=== PATIENT | female | born 1960 ===

== ENCOUNTER 2024-11-27 07:41 | Day surgery (SDC) | payer OTHER ==
[2024-11-27] MEDS ORDERED: ONDANSETRON HCL 2 MG/ML VIAL IV ONE (14:15)
[2024-11-27] MEDS ORDERED: DIPHENHYDRAMINE HCL 50 MG/ML VIAL 1ML IV ONE (14:15)
[2024-11-27] MEDS ORDERED: MIDAZOLAM HCL 2 MG/2 ML VIAL IV ONE (14:15)
[2024-11-27] MEDS ORDERED: fentaNYL CITRATE 50 MCG/ML AMPUL IV PUSH ONE (14:15)
== END 2024-11-27 15:30 | disposition home or self-care (01) ==
LOC: AMB-ENDOS 07:41
PROVIDERS: ATTEND Colon & Rectal Surgery
DX: K57.32 Diverticulitis of large intestine without perforation or abscess without bleeding (principal); Z93.3 Colostomy status; D12.5 Benign neoplasm of sigmoid colon; C20 Malignant neoplasm of rectum; R19.4 Change in bowel habit; Z12.11 Encounter for screening for malignant neoplasm of colon

== ENCOUNTER 2025-01-30 10:30 | Inpatient (IN) | payer OTHER ==
[~2025-01-30] VITALS: Ht 162.6 cm; Wt 80.7 kg
[2025-01-30 12:26] VITALS: BP 130/85
[2025-01-30] MEDS ORDERED: LIPITOR20 MG PO (14:15)
[2025-01-30] MEDS ORDERED: ACID REDUCER20 M1 PO (14:15)
[2025-01-30] MEDS ORDERED: CALCIUM500 M1 PO (14:16)
[2025-01-30] MEDS ORDERED: OMEGA-31000 MG PO (14:16)
[2025-02-07 08:21] LABS: RH POSITIVE
[2025-02-07] MEDS ORDERED: BUPIVACAINE HCL/Mpf 0.5% 10ML VIAL ONE (09:11)
[2025-02-07] MEDS ORDERED: LIDOCAINE HCL 1%/EPINEPHRINE 20ML VIAL IJ ONE ×2 (09:11→10:26)
[2025-02-07] MEDS ORDERED: METRONIDAZOLE/SODIUM CHLORIDE 500 MG/100 ML PIGGYBACK IV ONE (10:06)
[2025-02-07] MEDS ORDERED: CEFTRIAXONE SODIUM 2,000 MG VIAL ONE (10:06)
[2025-02-07] MEDS ORDERED: BUPIVACAINE HCL/MPF 0.5% 30ML VIAL ONE (10:26)
[2025-02-07] MEDS ORDERED: POVIDONE-IODINE 118 ML BOTT TOP ONE (10:30)
[2025-02-07] MEDS ORDERED: GLUCAGON 1 MG VIAL ONE (12:24)
[2025-02-07] MEDS ORDERED: ONDANSETRON HCL 2 MG/ML VIAL IV PRN (15:15)
[2025-02-07] MEDS ORDERED: MORPHINE SULFATE 4 MG/ML CARTRIDGE IV PRN (15:15)
[2025-02-07] MEDS ORDERED: RINGERS SOLUTION,LACTATED 1,000 ML IV SCH (15:15)
[2025-02-07] MEDS ORDERED: ENALAPRILAT DIHYDRATE 1.25 MG/ML VIAL IV PRN (15:30)
[2025-02-07] MEDS ORDERED: POLYETHYLENE GLYCOL 3350 17 GM BLIST.PACK PO SCH (17:00)
[2025-02-07] MEDS ORDERED: HYOSCYAMINE SULFATE 0.125 MG TAB.SUBL SL SCH (17:00)
[2025-02-07] MEDS ORDERED: GABAPENTIN 300 MG CAPSULE PO SCH (17:00)
[2025-02-07] MEDS ORDERED: MORPHINE SULFATE 4 MG/ML VIAL IV ONE (19:30)
[2025-02-07 19:37] LABS: BASO % 0.2 % (0.1-1.2); HEMATOCRIT 39.5 % (34.1-44.9); HEMOGLOBIN 12.9 g/dL (11.2-15.7); LYMPH # 1.09 (1.18-3.74); LYMPH % 6.7 % (19.3-53.1); MONO # 0.96 (0.24-0.82); MONO % 5.9 % (4.7-12.5); NEUT # 14.24 (1.56-6.13); PLATELET COUNT 242 K/uL (163-369); RED BLOOD COUNT 4.45 M/uL (3.93-5.22); RED CELL DISTRIBUTION WIDTH 13.2 % (11.6-14.4)
[2025-02-07 19:59] LABS: ALBUMIN 3.8 gm/dL (3.4-5.0); CALCIUM 8.5 mg/dL (8.5-10.1); CREATININE SERUM 0.6 mg/dL (0.55-1.02); GFR 100.64; MAGNESIUM 1.8 mg/dL (1.8-2.4); PHOSPHOROUS 3.1 mg/dL (2.5-4.9); POTASSIUM 4.28 mEq/L (3.5-5.1)
[2025-02-07] MEDS ORDERED: SIMETHICONE 125 MG CAPSULE PO ONE (20:45)
[2025-02-07] MEDS ORDERED: FAMOTIDINE/PF 20 MG/2 ML VIAL ONE (20:45)
[2025-02-07] MEDS ORDERED: SIMETHICONE 125 MG CAPSULE PO SCH (21:00)
[2025-02-07] MEDS ORDERED: FAMOTIDINE/PF 20 MG/2 ML VIAL IV PUSH SCH (21:00)
[2025-02-07 21:14] VITALS: BP 106/67; O2SAT 95
[2025-02-08 08:00] VITALS: BP 99/61; O2SAT 95
[2025-02-08 08:12] LABS: ALBUMIN 3.2 gm/dL (3.4-5.0); CREATININE SERUM 0.54 mg/dL (0.55-1.02); GFR 113.66; MAGNESIUM 1.9 mg/dL (1.8-2.4); PHOSPHOROUS 3.2 mg/dL (2.5-4.9); POTASSIUM 4.63 mEq/L (3.5-5.1)
[2025-02-08 08:31] LABS: BASO % 0.2 % (0.1-1.2); HEMATOCRIT 37.9 % (34.1-44.9); HEMOGLOBIN 12.5 g/dL (11.2-15.7); LYMPH # 1.65 (1.18-3.74); LYMPH % 13.4 % (19.3-53.1); MEAN CORPUSCULAR HEMOGLOBIN 29.3 pg (25.6-32.2); MONO # 1.21 (0.24-0.82); MONO % 9.9 % (4.7-12.5); NEUT # 9.36 (1.56-6.13); NEUT % 76.3 % (34.0-71.1); PLATELET COUNT 272 K/uL (163-369); RED BLOOD COUNT 4.26 M/uL (3.93-5.22); RED CELL DISTRIBUTION WIDTH 13.3 % (11.6-14.4)
[2025-02-08] MEDS ORDERED: LACTOBACILLUS ACIDOPHILUS 1 CAP CAP PO SCH (09:00)
[2025-02-08 15:38] VITALS: BP 115/60; O2SAT 94
[2025-02-08] MEDS ORDERED: ENOXAPARIN SODIUM 40 MG/0.4 ML SYRINGE SUBCUTANEO SCH (17:00)
[2025-02-08] MEDS ORDERED: MAGNESIUM SULFATE 1,000 MG in 0.9 % SODIUM CHLORIDE 50 ML IV ONE (19:30)
[2025-02-08] MEDS ORDERED: OxyCODONE HCL 5 MG TABLET (ROXICODONE) PO PRN (19:45)
[2025-02-08] MEDS ORDERED: POTASSIUM PHOS,M-BASIC-D-BASIC 15 MM in 0.9 % SODIUM CHLORIDE 250 ML IV ONE (19:45)
[2025-02-08] MEDS ORDERED: MAGNESIUM SULFATE 50% 1,000 MG/2 ML VIAL ONE (20:02)
[2025-02-09 08:00] VITALS: BP 119/72; O2SAT 95
[2025-02-09 08:15] LABS: ALBUMIN 3.1 gm/dL (3.4-5.0); CALCIUM 7.7 mg/dL (8.5-10.1); CREATININE SERUM 0.58 mg/dL (0.55-1.02); GFR 104.66; MAGNESIUM 2.1 mg/dL (1.8-2.4); PHOSPHOROUS 2.2 mg/dL (2.5-4.9); POTASSIUM 4.32 mEq/L (3.5-5.1)
[2025-02-09 08:42] LABS: BASO % 0.4 % (0.1-1.2); EOS # 0.04 (0.04-0.54); EOS % 0.4 % (0.7-7.0); HEMATOCRIT 36.4 % (34.1-44.9); HEMOGLOBIN 11.7 g/dL (11.2-15.7); LYMPH % 17.5 % (19.3-53.1); MEAN CORPUSCULAR HEMOGLOBIN 29.5 pg (25.6-32.2); MONO # 1.06 (0.24-0.82); MONO % 10.3 % (4.7-12.5); NEUT # 7.31 (1.56-6.13); NEUT % 70.8 % (34.0-71.1); PLATELET COUNT 216 K/uL (163-369); RED BLOOD COUNT 3.96 M/uL (3.93-5.22); RED CELL DISTRIBUTION WIDTH 13.7 % (11.6-14.4)
[2025-02-09] MEDS ORDERED: FAMOtidine 20 MG TABLET PO SCH (09:00)
[2025-02-09] MEDS ORDERED: NAPH,MB-DB/K PH,MBDB 1 PKT PACKET PO SCH ×2 (09:00→21:04)
[2025-02-09] MEDS ORDERED: ACETAMINOPHEN 500 MG GEL..CAP PO PRN (11:30)
[2025-02-09] MEDS ORDERED: PHENOL 177 ML BOTTLE MM PRN (11:30)
[2025-02-09 16:04] VITALS: BP 128/77; O2SAT 98
[2025-02-09] MEDS ORDERED: POTASSIUM PHOS,M-BASIC-D-BASIC 15 MM in 0.9 % SODIUM CHLORIDE 250 ML IV ONE (21:15)
[2025-02-09] MEDS ORDERED: MORPHINE SULFATE 4 MG/ML CARTRIDGE IV PRN (21:15)
[2025-02-09] MEDS ORDERED: NAPH,MB-DB/K PH,MBDB 1 PKT PACKET PO ONE (21:27)
[2025-02-10 00:26] VITALS: BP 110/70; O2SAT 95
[2025-02-10 07:46] LABS: BASO % 0.3 % (0.1-1.2); EOS # 0.17 (0.04-0.54); EOS % 1.8 % (0.7-7.0); HEMATOCRIT 34.5 % (34.1-44.9); HEMOGLOBIN 11.5 g/dL (11.2-15.7); LYMPH # 1.57 (1.18-3.74); LYMPH % 16.5 % (19.3-53.1); MEAN CORPUSCULAR HEMOGLOBIN 30.3 pg (25.6-32.2); MONO # 0.74 (0.24-0.82); MONO % 7.8 % (4.7-12.5); NEUT # 6.95 (1.56-6.13); NEUT % 73.1 % (34.0-71.1); PLATELET COUNT 245 K/uL (163-369); RED CELL DISTRIBUTION WIDTH 13.4 % (11.6-14.4)
[2025-02-10 07:47] VITALS: BP 117/70; O2SAT 96
[2025-02-10 08:15] LABS: ALBUMIN 3.1 gm/dL (3.4-5.0); CALCIUM 8.2 mg/dL (8.5-10.1); CREATININE SERUM 0.49 mg/dL (0.55-1.02); GFR 127.14; MAGNESIUM 1.8 mg/dL (1.8-2.4); PHOSPHOROUS 3.1 mg/dL (2.5-4.9); POTASSIUM 4.29 mEq/L (3.5-5.1)
[2025-02-10] MEDS ORDERED: AMINO ACIDS/PROTEIN HYDROLYS 30 ML BLIST.PACK PO SCH (09:00)
[2025-02-10 15:40] VITALS: BP 124/77; BP 1244/77; O2SAT 97
[2025-02-10] MEDS ORDERED: NAPH,MB-DB/K PH,MBDB 1 PKT PACKET PO STA (16:13)
== END 2025-02-10 22:21 | disposition home or self-care (01) | DRG 330 ==
LOC: O/R 02-07 06:08 → SURH 02-07 10:30 → SURG 02-07 20:12
PROVIDERS: ADMIT Colon & Rectal Surgery; ATTEND Colon & Rectal Surgery
PROC: 0DBP4ZZ Excision of Rectum, Percutaneous Endoscopic Approach (ICD-10-PCS; 2025-02-07)
PROC: 0DN84ZZ Release Small Intestine, Percutaneous Endoscopic Approach (ICD-10-PCS; 2025-02-07)
PROC: 0DBM4ZZ Excision of Descending Colon, Percutaneous Endoscopic Approach (ICD-10-PCS; 2025-02-07)
PROC: 0WQF4ZZ Repair Abdominal Wall, Percutaneous Endoscopic Approach (ICD-10-PCS; 2025-02-07)
PROC: 0DJD8ZZ Inspection of Lower Intestinal Tract, Via Natural or Artificial Opening Endoscopic (ICD-10-PCS; 2025-02-07)
PROC: 0DTN4ZZ Resection of Sigmoid Colon, Percutaneous Endoscopic Approach (ICD-10-PCS; principal; 2025-02-07 10:30)
DX: K57.32 Diverticulitis of large intestine without perforation or abscess without bleeding (principal); K43.3 Parastomal hernia with obstruction, without gangrene; K56.51 Intestinal adhesions [bands], with partial obstruction; D12.5 Benign neoplasm of sigmoid colon; J39.2 Other diseases of pharynx; Z43.3 Encounter for attention to colostomy

== ENCOUNTER 2025-08-04 07:00 | Day surgery (SDC) | payer OTHER ==
[~2025-08-04 07:00] MED LIST: ACID REDUCER20 M1 PO; CALCIUM500 M1 PO; LIPITOR20 MG PO; OMEGA-31000 MG PO
[2025-08-04] MEDS ORDERED: DIPHENHYDRAMINE HCL 50 MG/ML VIAL 1ML IV ONE (11:45)
[2025-08-04] MEDS ORDERED: MIDAZOLAM HCL 2 MG/2 ML VIAL IV ONE (11:45)
[2025-08-04] MEDS ORDERED: ONDANSETRON HCL 2 MG/ML VIAL IV ONE (11:45)
[2025-08-04] MEDS ORDERED: fentaNYL CITRATE 50 MCG/ML AMPUL IV PUSH ONE (11:45)
== END 2025-08-04 12:50 | disposition home or self-care (01) ==
LOC: AMB-ENDOS 07:00
PROVIDERS: ATTEND Colon & Rectal Surgery
DX: K63.5 Polyp of colon (principal); K62.5 Hemorrhage of anus and rectum